=== PATIENT | male | born 1950 | race Caucasian/White ===

== ENCOUNTER 2022-04-28 22:37 | Inpatient (IN) ==
[2022-04-28] MEDS ORDERED: DEXAMETHASONE 4 MG/1 ML VIAL IV STA (23:01)
[2022-04-28] MEDS ORDERED: ALBUTEROL NEB SOLN 5 MG/ML 20 ML/BOTTLE CONT NEB STA (23:01)
[2022-04-28 23:09] LABS: Basophils % 0.6 % (0.0-0.8); Eosinophils # 0.1 10*3/uL (0.0-0.87); Eosinophils % 1.8 % (0.00-10.9); Hematocrit 43.1 VOL% (42.0-52.0); Hemoglobin 14.6 GM/DL (14.0-18.0); Immature Granulocytes % 0.3 %; Immature Granulocytes Absolute 0.02 #; Lymphocytes # 1.5 10*3/uL (1.4-4.0); Lymphocytes % 22.2 % (21.2-54.2); Mean Corpuscular HGB Conc 33.9 GM/DL (32-36); Mean Corpuscular Volume 91.7 FL (87-102); Mean Platelet Volume 9.7 FL (9.6-12.0); Monocytes # 0.7 10*3/uL (0.11-0.8); Monocytes % 11.1 % (1.7-12.7); Platelet Count 184 T/CUMM (130-400); Red Cell Distribution Width 14.6 % (9.3-17.3); White Blood Count 6.6 T/CUMM (4-12)
[2022-04-28 23:42] LABS: Calcium 8.5 MG/DL (8.5-10.1); Osmolality,Calculated 255.9 MOS/KG (273-304); Potassium 4.7 MMOL/L (3.5-5.1)
[2022-04-29] MEDS ORDERED: MAGNESIUM SULF RIDER 1 GM/100 ML PREMIX IV STA (00:07)
[2022-04-29] MEDS ORDERED: SODIUM CHLORIDE 0.9% 1,000 ML IV STA (00:20)
[2022-04-29] MEDS ORDERED: AZITHROMYCIN INJ 500 MG in SODIUM CHLORIDE 0.9% 250 ML IV STA (00:26)
[2022-04-29] MEDS ORDERED: GLUCAGON 1 MG VIAL IM PRN (01:15)
[2022-04-29] MEDS ORDERED: DEXTROSE 10% 250 ML BAG IV PRN (01:15)
[2022-04-29] MEDS ORDERED: NICOTINE 21 MG/24 HR PATCH TRANSDERM PRN (01:16)
[2022-04-29] MEDS ORDERED: ACETAMINOPHEN 325 MG TABLET PO PRN (01:16)
[2022-04-29] MEDS ORDERED: ALUMINUM/MAGNES/SIMETH MAX STR 30 ML UDCUP PO PRN (01:16)
[2022-04-29] MEDS ORDERED: hydrALAZINE 20 MG/1 ML VIAL IV PRN (01:16)
[2022-04-29] MEDS ORDERED: ONDANSETRON 4 MG/2 ML VIAL IV PRN (01:16)
[2022-04-29 01:18] LABS: Arterial Base Excess iSTAT -2 MMOL/L (-2.5-2.5); Arterial Bicarbonate iSTAT 23.6 MMOL/L (20-26); Arterial O2 Saturation iSTAT 96 % (95-100); Arterial PCO2 iSTAT 41 MM HG (35-48); Arterial PO2 iSTAT 84 MM HG (80-95); Arterial Total CO2 iSTAT 25 MMO/L (23-27); Arterial pH iSTAT 7.363 (7.35-7.45)
[2022-04-29] MEDS ORDERED: guaiFENesin/CODEINE 5 ML LIQUID PO PRN (01:21)
[2022-04-29] MEDS ORDERED: DOCUSATE SODIUM 100 MG CAPSULE PO PRN (02:05)
[2022-04-29] MEDS ORDERED: ALBUTEROL/IPRATROPIUM 3 ML NEB RESP TX STA (02:23)
[2022-04-29] MEDS ORDERED: methylPREDNISolone SOD SUC 40 MG/1 ML VIAL IV STA (02:23)
[2022-04-29] MEDS ORDERED: BUDESONIDE 0.5 MG/2 ML NEB RESP TX STA (03:12)
[2022-04-29] MEDS ORDERED: BUDESONIDE 0.5 MG/2 ML NEB RESP TX ONE (03:14)
[2022-04-29] MEDS: SODIUM CHLORIDE 0.9% 1,000 ML IV SCH ×2 (03:20→12:04)
[2022-04-29] MEDS ORDERED: TERBUTALINE 1 MG/1 ML VIAL SUBCUT ONE ×2 (03:30→05:00)
[2022-04-29] MEDS: methylPREDNISolone SOD SUC 40 MG/1 ML VIAL IV SCH ×4 (04:26→23:00)
[2022-04-29] MEDS ORDERED: ALBUTEROL/IPRATROPIUM 3 ML NEB RESP TX SCH (07:00)
[2022-04-29] MEDS: ALBUTEROL/IPRATROPIUM 3 ML NEB RESP TX SCH ×6 (07:55→23:52)
[2022-04-29] MEDS: BUDESONIDE 0.5 MG/2 ML NEB RESP TX SCH ×3 (07:55→18:52)
[2022-04-29] MEDS ORDERED: ERGOCALCIFEROL 50,000 UNIT CAPSULE PO SCH (09:00)
[2022-04-29] MEDS: POTASSIUM CHLORIDE 10 MEQ TABLET PO SCH (09:04)
[2022-04-29] MEDS: ENOXAPARIN 40 MG/0.4 ML SYRINGE SUBCUT SCH (09:04)
[2022-04-29] MEDS: PRASUGREL 10 MG TABLET PO SCH (09:04)
[2022-04-29] MEDS: DOCUSATE SODIUM 100 MG CAPSULE PO SCH ×2 (09:05→20:41)
[2022-04-29] MEDS: amLODIPine 5 MG TABLET PO SCH (09:05)
[2022-04-29] MEDS: carvediloL 3.125 MG TABLET PO SCH ×2 (09:05→20:42)
[2022-04-29] MEDS: OLANZapine 5 MG TABLET PO SCH (09:05)
[2022-04-29] MEDS: PANTOPRAZOLE 40 MG TABLET PO SCH (09:05)
[2022-04-29] MEDS: ISOSORBIDE DINITRATE 20 MG TABLET PO SCH ×2 (09:05→20:42)
[2022-04-29] MEDS: GABAPENTIN 600 MG TABLET PO SCH ×3 (09:06→20:42)
[2022-04-29] MEDS: BUDESONIDE/FORMOTEROL 160-4.5 INHALER 6 GM INH SCH ×2 (09:07→20:42)
[2022-04-29] MEDS: ENALAPRIL 20 MG TABLET PO SCH (09:07)
[2022-04-29] MEDS: BENZONATATE 100 MG CAPSULE PO SCH ×3 (12:04→20:42)
[2022-04-29] MEDS: MONTELUKAST 10 MG TABLET PO SCH (20:42)
[2022-04-30] MEDS: ALBUTEROL/IPRATROPIUM 3 ML NEB RESP TX SCH ×6 (03:40→23:30)
[2022-04-30] MEDS: methylPREDNISolone SOD SUC 40 MG/1 ML VIAL IV SCH ×3 (05:58→16:50)
[2022-04-30 06:12] LABS: Calcium 8.1 MG/DL (8.5-10.1); Osmolality,Calculated 270.1 MOS/KG (273-304); Potassium 4.3 MMOL/L (3.5-5.1)
[2022-04-30 06:40] LABS: Basophils % 0.1 % (0.0-0.8); Hematocrit 36.9 VOL% (42.0-52.0); Hemoglobin 12.4 GM/DL (14.0-18.0); Immature Granulocytes % 0.4 %; Immature Granulocytes Absolute 0.03 #; Lymphocytes % 12.3 % (21.2-54.2); Mean Corpuscular HGB Conc 33.6 GM/DL (32-36); Mean Corpuscular Volume 92.9 FL (87-102); Monocytes # 0.3 10*3/uL (0.11-0.8); Neutrophils % 83.2 % (38.7-73.9); Platelet Count 165 T/CUMM (130-400); Red Blood Count 3.97 MC/CUMM (3.8-5.5); White Blood Count 8.3 T/CUMM (4-12)
[2022-04-30] MEDS: BUDESONIDE 0.5 MG/2 ML NEB RESP TX SCH ×2 (07:23→19:41)
[2022-04-30] MEDS: DOCUSATE SODIUM 100 MG CAPSULE PO SCH ×2 (09:42→20:51)
[2022-04-30] MEDS: OLANZapine 5 MG TABLET PO SCH (09:44)
[2022-04-30] MEDS: ENALAPRIL 20 MG TABLET PO SCH (09:44)
[2022-04-30] MEDS: GABAPENTIN 600 MG TABLET PO SCH ×3 (09:44→20:51)
[2022-04-30] MEDS: POTASSIUM CHLORIDE 10 MEQ TABLET PO SCH (09:44)
[2022-04-30] MEDS: PANTOPRAZOLE 40 MG TABLET PO SCH (09:44)
[2022-04-30] MEDS: BENZONATATE 100 MG CAPSULE PO SCH ×3 (09:44→20:51)
[2022-04-30] MEDS: PRASUGREL 10 MG TABLET PO SCH (09:44)
[2022-04-30] MEDS: carvediloL 3.125 MG TABLET PO SCH ×2 (09:44→20:51)
[2022-04-30] MEDS: ISOSORBIDE DINITRATE 20 MG TABLET PO SCH ×2 (09:44→20:51)
[2022-04-30] MEDS: amLODIPine 5 MG TABLET PO SCH (09:44)
[2022-04-30] MEDS: BUDESONIDE/FORMOTEROL 160-4.5 INHALER 6 GM INH SCH ×2 (09:44→20:51)
[2022-04-30] MEDS: ENOXAPARIN 40 MG/0.4 ML SYRINGE SUBCUT SCH (09:44)
[2022-04-30] MEDS: MONTELUKAST 10 MG TABLET PO SCH (20:51)
[2022-05-01] MEDS: methylPREDNISolone SOD SUC 40 MG/1 ML VIAL IV SCH ×4 (01:00→16:38)
[2022-05-01] MEDS: ALBUTEROL/IPRATROPIUM 3 ML NEB RESP TX SCH ×6 (03:20→23:45)
[2022-05-01] MEDS: BUDESONIDE 0.5 MG/2 ML NEB RESP TX SCH ×2 (06:45→19:00)
[2022-05-01] MEDS: DOCUSATE SODIUM 100 MG CAPSULE PO SCH ×2 (09:36→20:40)
[2022-05-01] MEDS: BENZONATATE 100 MG CAPSULE PO SCH ×3 (09:37→20:39)
[2022-05-01] MEDS: ISOSORBIDE DINITRATE 20 MG TABLET PO SCH ×2 (09:37→20:39)
[2022-05-01] MEDS: OLANZapine 5 MG TABLET PO SCH (09:38)
[2022-05-01] MEDS: amLODIPine 5 MG TABLET PO SCH (09:38)
[2022-05-01] MEDS: PANTOPRAZOLE 40 MG TABLET PO SCH (09:38)
[2022-05-01] MEDS: carvediloL 3.125 MG TABLET PO SCH ×2 (09:38→20:39)
[2022-05-01] MEDS: ENALAPRIL 20 MG TABLET PO SCH (09:38)
[2022-05-01] MEDS: PRASUGREL 10 MG TABLET PO SCH (09:39)
[2022-05-01] MEDS: POTASSIUM CHLORIDE 10 MEQ TABLET PO SCH (09:39)
[2022-05-01] MEDS: GABAPENTIN 600 MG TABLET PO SCH ×3 (09:39→20:39)
[2022-05-01] MEDS: ENOXAPARIN 40 MG/0.4 ML SYRINGE SUBCUT SCH (09:40)
[2022-05-01] MEDS: THEOPHYLLINE ER 300 MG TABLET PO SCH (16:39)
[2022-05-01] MEDS: BUDESONIDE/FORMOTEROL 160-4.5 INHALER 6 GM INH SCH ×2 (19:36→21:32)
[2022-05-01] MEDS: MONTELUKAST 10 MG TABLET PO SCH (20:40)
[2022-05-02] MEDS: methylPREDNISolone SOD SUC 40 MG/1 ML VIAL IV SCH ×2 (00:12→09:47)
[2022-05-02] MEDS: ALBUTEROL/IPRATROPIUM 3 ML NEB RESP TX SCH ×4 (03:37→14:38)
[2022-05-02] MEDS: BUDESONIDE 0.5 MG/2 ML NEB RESP TX SCH (07:10)
[2022-05-02] MEDS: PRASUGREL 10 MG TABLET PO SCH (09:43)
[2022-05-02] MEDS: POTASSIUM CHLORIDE 10 MEQ TABLET PO SCH (09:43)
[2022-05-02] MEDS: ENALAPRIL 20 MG TABLET PO SCH (09:44)
[2022-05-02] MEDS: PANTOPRAZOLE 40 MG TABLET PO SCH (09:44)
[2022-05-02] MEDS: amLODIPine 5 MG TABLET PO SCH (09:44)
[2022-05-02] MEDS: GABAPENTIN 600 MG TABLET PO SCH (09:44)
[2022-05-02] MEDS: BENZONATATE 100 MG CAPSULE PO SCH (09:44)
[2022-05-02] MEDS: OLANZapine 5 MG TABLET PO SCH (09:45)
[2022-05-02] MEDS: ISOSORBIDE DINITRATE 20 MG TABLET PO SCH (09:45)
[2022-05-02] MEDS: carvediloL 3.125 MG TABLET PO SCH (09:45)
[2022-05-02] MEDS: ENOXAPARIN 40 MG/0.4 ML SYRINGE SUBCUT SCH (09:46)
[2022-05-02] MEDS: DOCUSATE SODIUM 100 MG CAPSULE PO SCH (09:46)
[2022-05-02] MEDS: THEOPHYLLINE ER 300 MG TABLET PO SCH (09:51)
[2022-05-02 12:22] VITALS: BP 124/65
== END 2022-05-02 15:30 | disposition home or self-care (01) | DRG 191 ==
LOC: N.EDINP 22:37 → N.ED 22:37 → N.ICU 04-29 03:45 → N.5E 04-29 13:54
PROVIDERS: ADMIT Internal Medicine; ATTEND Internal Medicine